=== PATIENT | male | born 1985 ===

== ENCOUNTER 2020-07-26 09:52 | Emergency (ER) | payer SELFPAY ==
--- NOTE | 2020-07-26 10:31 | ED_ITS ---
HPI - Dental/Oral General Chief complaint: Dental/Oral Stated complaint: dental pain Time Seen by Provider: 07/26/20 10:31 Source: patient Mode of arrival: ambulatory Limitations: no limitations History of Present Illness HPI Narrative: Pt states one week of dental pain, upper left side, sensitive to heat and cold, small amount of swelling in cheek, thinks it is a broken tooth, doesn't have a dentist, just got out of half-way where he did have cleanings done, denies gum or tongue swelling or fevers. Related Data Previous Rx's Medication Instructions Recorded penicillin V potassium 500 mg PO TID #30 tab 07/26/20 Allergies Allergy/AdvReac Type Severity Reaction Status Date / Time No Known Allergies Allergy Verified 07/26/20 10:39 [No Known Allergies*] Review of Systems Review of Systems: see HPI [facility] Past Medical History Medical History No known health problems Social History Social History Alcohol intake: never Smoking Status: Current every day smoker Use of substances other than those prescribed or required for medical reasons: No Advance Directives: No Advance Directives Information Provided: No Physical Exam Vital Signs: Vital Signs: Last Vital Signs Temp 98.3 F 07/26/20 10:32 Pulse 76 07/26/20 10:32 Resp 18 07/26/20 10:32 BP 118/71 07/26/20 10:32 Pulse Ox 99 07/26/20 10:32 Body Mass Index 23.1 Const: General: cooperative, healthy appearing, comfortable and no acute distress Nutritional Appearance: average body habitus Orientation/consciousness: patient oriented x3 Limitations: no limitations HENMT: Head: Yes normal to inspection General nose exam: Normal external nose present Face and sinus: Yes normal facial exam Mouth: Normal oral and palatal mucosa present Teeth and gingiva: abnormal tooth and associated gingiva (small pocket of suspected infection in left cheek near broken tooth) upper left , caries (mulitple) and poor dentition (multiple broken teeth) Throat: Yes posterior oropharynx normal, Yes tonsils normal and Yes uvula midline Eyes: General: appearance normal, both eyes and all related structures Resp: Effort & Inspection: normal respiratory effort Skin: General skin exam: no rashes or lesions noted Neuro: General: patient oriented x3 Course Course Course Narrative: Gave pt list of dentists, advised to follow up cher[facility]. Will rx pen and no opioids as pt has IV drug abuse hx. Advised pt to alternate motrin and tylenol. MDM - Dental/Oral Differential Diagnosis Differential diagnosis: Likely dental caries and fracture of tooth Medical Records Attestation: I reviewed the patient's medical records. Discharge Plan Discharge Clinical Impression: Dental caries, Dental abscess Fracture of tooth Qualifiers: Encounter type: initial encounter Fracture type: closed Qualified Code(s): S02.5XXA - Fracture of tooth (traumatic), initial encounter for closed fracture Patient Disposition: Home, Self-Care Instructions: Toothache (ED) Additional Instructions: Please be sure to follow up with a dentist, I have provided you with a list of local ones who accept [facility]. Prescriptions: New penicillin V potassium 500 mg tablet 500 mg PO TID Qty: 30 RF: 0 Stand Alone Forms: Work/School Release
[2020-07-26 10:32] VITALS: BP 118/71; PULSE 76; RESP 18; TEMP 36.8; O2SAT 99; BMI 23.1
== END 2020-07-26 11:11 | disposition home or self-care (01) ==
PROVIDERS: Emergency Provider Emergency Medicine Emergency Medical Services
DX: K04.7 Periapical abscess without sinus (principal); K08.89 Other specified disorders of teeth and supporting structures; F17.200 Nicotine dependence, unspecified, uncomplicated; Z71.6 Tobacco abuse counseling
CPT/HCPCS: 99283

== ENCOUNTER 2020-07-29 08:51 | Emergency (ER) | payer SELFPAY ==
[2020-07-29 08:56] VITALS: BP 113/66; PULSE 67; RESP 18; TEMP 36.6; O2SAT 98; BMI 22.4
--- NOTE | 2020-07-29 09:10 | ED_ITS ---
HPI - Dental/Oral General Chief complaint: Dental/Oral Stated complaint: DENTAL PAIN Time Seen by Provider: 07/29/20 09:10 Source: patient Mode of arrival: ambulatory Limitations: no limitations History of Present Illness HPI Narrative: 34 y/o male with history of dental caries who presents with left upper and lower dental pain for the last 1 week. He has had 2 broken teeth for a long time. He was seen here for the same 3 days ago and prescribed penicillin which he has been taking. He also has been taking Tylenol and Motrin intermittently without improvement in the pain. He has not followed up with a dentist because he states he does not have health insurance. Teeth map: 1. broken tooth 2. broken tooth Onset (ago): week(s) (1) Duration: constant Severity: severe Relieving factors: nothing Exacerbating factors: cold Context: history of dental caries and poor dental care Treatment prior to arrival: none Related Data Previous Rx's Medication Instructions Recorded penicillin V potassium 500 mg PO TID #30 tab 07/26/20 ibuprofen 600 mg PO Q8H PRN #20 tab 07/29/20 tramadol 50 mg PO Q6H PRN #10 tab 07/29/20 Allergies Allergy/AdvReac Type Severity Reaction Status Date / Time No Known Allergies Allergy Verified 07/29/20 09:09 [No Known Allergies*] Review of Systems Review of Systems: Constitutional: No Fever, No Chills ENT/Mouth: No sore throat, No Rhinorrhea, No Swallowing Difficulty, +dental pain Respiratory: No Cough, No Sputum Gastrointestinal: No Nausea, No Vomiting Skin: No Skin Lesions, No rash Neuro: + Headache PMFSH Past Medical History Attestation statement: The following information was validated with the patient. Medical History No known health problems Social History Social History Alcohol intake: never Smoking Status: Current every day smoker Advance Directives: No Advance Directives Information Provided: No Physical Exam Vital Signs: Vital Signs: Last Vital Signs Temp 97.8 F 07/29/20 08:56 Pulse 67 07/29/20 08:56 Resp 18 07/29/20 08:56 BP 113/66 07/29/20 08:56 Pulse Ox 98 07/29/20 08:56 Body Mass Index 22.4 Const: General: cooperative, healthy appearing, comfortable, no acute distress and well developed Orientation/consciousness: oriented to person, oriented to place, oriented to time and patient oriented x3 HENMT: Head: Yes normal to inspection Ears: hearing grossly normal bilaterally General nose exam: Normal external nose present Face and sinus: Yes normal facial exam Mouth: Normal oral and palatal mucosa present, lip normal, tongue normal and moist mucous membranes Teeth and gingiva: abnormal tooth and associated gingiva upper left tender, with associated gingival edema, enamel fractured and pulp exposed, lower left tender, with associated gingival edema, enamel fractured and dentin fractured Throat: Yes posterior oropharynx normal and Yes uvula midline Eyes: General: appearance normal, both eyes and all related structures Neck: Neck: Yes normal visual inspection and Yes no lymphadenopathy Chest: Chest palpation & inspection: normal inspection of the chest Resp: Effort & Inspection: normal respiratory effort and able to speak in comp lete sentences Skin: General skin exam: no rashes or lesions noted Neuro: General: oriented to person, oriented to place, oriented to time, patient oriented x3 and gait normal Extrem: General: Yes normal to inspection Course Course Course Narrative: 34 y/o return visit for dental pain. Compliant with PCN. No signs of abscess on exam. Topical lollicaine applied for comfort with good effect. Will give short course of tramadol for pain and list of dentist was provided. Expressed importance of dental follow up and he agrees to call today. MDM - Dental/Oral Differential Diagnosis Differential diagnosis: Likely gingival abscess, dental caries, toothache, dental abscess and fracture of tooth Critical Care Time Critical Care Time Critical Care Time: No Discharge Plan Discharge Clinical Impression: Toothache Patient Disposition: Home, Self-Care Instructions: Toothache (ED), Tooth Extraction (DC) Additional Instructions: You should continue taking the antibiotics as previously prescribed. Take the prescribed medications as needed for pain. You MUST follow up with a dentist [facility] to address your dental pain. List has been provided to you. Prescriptions: New tramadol 50 mg tablet 50 mg PO Q6H PRN (Reason: pain) Qty: 10 RF: 0 ibuprofen 600 mg tablet 600 mg PO Q8H PRN (Reason: pain) Qty: 20 RF: 0 No Action penicillin V potassium 500 mg tablet 500 mg PO TID Qty: 30 RF: 0 Discharge Date/Time: 07/29/20 09:28
== END 2020-07-29 09:28 | disposition home or self-care (01) ==
PROVIDERS: Emergency Provider Emergency Medicine Emergency Medical Services
DX: K02.9 Dental caries, unspecified (principal); F17.200 Nicotine dependence, unspecified, uncomplicated; Z71.6 Tobacco abuse counseling
CPT/HCPCS: 99283

== ENCOUNTER 2020-11-06 08:07 | Emergency (ER) | payer MEDICAID, SELFPAY ==
[2020-11-06 08:12] VITALS: BP 142/82; PULSE 75; RESP 20; TEMP 36.7; O2SAT 100; BMI 17.1
--- NOTE | 2020-11-06 12:00 | PC.NURSE ---
FAXED AND CALLED TO [facility]
[2020-11-06 12:15] LABS: Basophils Percent Auto 0.3 % (0-2); Eosinophils Percent Auto 0.3 % (0-4); Hematocrit 40.4 % (42-52); Hemoglobin 13.1 g/dl (14.0-18.0); Imm Gran Abs Auto 0.02 X10*3/uL (0.00-0.03); Imm Gran Pct Auto 0.2 % (0.0-0.4); Lymphocytes Absolute Auto 2.8 X10*3/uL (1.2-4.9); Lymphocytes Percent Auto 31.1 % (20-40); MANUAL DIFF FLAG NO; Mean Corpuscular HGB Conc 32.4 g/dl (31.0-36.0); Mean Corpuscular Hemoglobin 26.2 pg (27.0-33.0); Mean Corpuscular Volume 80.8 fL (80-98); Mean Platelet Volume 9.1 fL (9.4-12.4); Monocytes Absolute Auto 0.3 X10*3/uL (0.1-1.2); Monocytes Percent Auto 2.7 % (2-11); Neutrophils Absolute Auto 5.9 X10*3/uL (2.0-8.3); Neutrophils Percent Auto 65.4 % (45-73); Platelet Count 218 X10*3/uL (160-400); Red Cell Distribution Width 13.1 % (11.0-16.0); White Blood Count 9.1 X10*3/uL (4.8-10.8)
[2020-11-06 12:55] LABS: Influenza A PCR NEGATIVE (Negative); Influenza B PCR NEGATIVE (Negative); Resp Syncy Virus RNA Qual PCR NEGATIVE (Negative); SARS COV2 PCR INHOUSE NEGATIVE (Negative)
[2020-11-06 12:56] LABS: Ethanol < 10 mg/dL
[2020-11-06 12:58] LABS: Anion Gap 11 (12-20); Blood Urea Nitrogen 10 mg/dL (9-16); Calcium 9.1 mg/dL (8.4-10.2); Carbon Dioxide 24 mmol/L (22-29); Chloride 107 mmol/L (96-108); Creatinine Clr Calc Pharmacy 106.1; Estimated Glomerular Filt Rate > 60; Glucose Random 130 mg/dL (60-115); Sodium 138 mmol/L (135-145)
--- NOTE | 2020-11-06 13:07 | PC.NURSE ---
pt sleeping in [address] bed. reports SI with no plan, hx of SA. Stopped consuming 1 bundle QD 2 days ago. Denies ETOH. COWS 2. Sitter at bedside.
[2020-11-06 15:46] VITALS: BP 118/64; PULSE 64; RESP 16; O2SAT 99
--- NOTE | 2020-11-06 16:35 | MHC.CARE ---
CARE team contacted [facility] re: ETA for a clinician to evaluate pt. [facility] unable to provide an estimate at this time, reporting that they are backed up with community based assessments. CARE team will complete the evaluation. Pt is uninsured.
--- NOTE | 2020-11-06 17:07 | MHC.CARE ---
CARE team met with pt to complete risk assessment with the assistance of a Nepalese language asst. Pt reported that he hasn't been sleeping well and has not used in the past 2 days. Pt stated that he came to the ED because he has been feeling a heat inside that has been keeping him from sleeping and made him have thoughts of hurting himself. Pt reported that he has been using speedballs (cocaine and fentanyl) for the past 6 months. Prior to this, pt stated that he had only used marijuana. Pt denied having a hx of mental illness, depression, anxiety, etc. Pt denied hx of inpatient or outpatient treatment for mental illness. Pt denied hx of suicide attempts and endorsed hx of one previous instance of experiencing suicidal ideation while pt was in longterm, when he considered choking himself. Pt denied current SI, however stated that if he is discharged from the ED without treatment, he will want to harm himself. Pt is seeking detox and recovery resources. Pt has no hx of methadone or suboxone, and is uninsured at this time. This quality analyst/technical writer has conducted a bedsearch. No beds available at [facility], there are 3 beds available at [facility] detox in [place] after 9pm (for either 10pm, 12am, or 2am admission times), and [facility] ([facility]) has beds available indicated via [facility], though not confirmed, as they required documentation to be sent beforehand. This quality analyst/technical writer will fax over ED visit summary and labs for review to [facility], will plan to follow up with [facility] at 9pm, and will have defensive line coach meet with pt this evening.
--- NOTE | 2020-11-06 18:24 | MHC.RECOVSUP ---
? Reason for consult :Withdrawal o Current location: ED22 o Identified substance use concern: Heroin - Withdrawal - Seeking ATS (detox) - Support ? Intervention: o ATS bed search started 6pm -6:45pm o MAT to be started at the ED Waiting for Doctor in charge approval o Community resources provided o Harm reduction discussion ? Plan: o Referral to [facility] o Follow up tomorrow at the [facility] o Patient is to follow up with [facility] tomorrow as well for detox or other resource. ? Additional information:
[2020-11-06] MEDS: Buprenorphine/Naloxone 4/1 mg FILM 1 FILM SUBLINGUAL (18:38)
--- NOTE | 2020-11-06 18:54 | MHC.CARE ---
No detox beds available. Pt interested in starting suboxone. This functional tester typewriters spoke with ED provider re: initiating suboxone while in the ED with plan to follow-up with [facility] tomorrow (Saturday) morning. personal health coach supporting pt with follow-up and referral.
== END 2020-11-06 18:45 | disposition home or self-care (01) ==
PROVIDERS: Emergency Provider Emergency Medicine
DX: F11.23 Opioid dependence with withdrawal (principal); Z71.51 Drug abuse counseling and surveillance of drug abuser; Z20.822 Contact with and (suspected) exposure to COVID-19
CPT/HCPCS: 0241U; 36415; 80048; 80320; 85025; 99285

== ENCOUNTER → 2020-11-07 10:05 | Outpatient (BNVA) | payer MEDICAID, SELFPAY | PROVIDERS: Visit Provider Internal Medicine | DX: F11.99 Opioid use, unspecified with unspecified opioid-induced disorder (principal); Z79.899 Other long term (current) drug therapy | CPT/HCPCS: 80305; 99202 ==

== ENCOUNTER 2020-12-30 11:24 | Emergency (ER) | payer OTHER, SELFPAY ==
--- NOTE | ~2020-12-30 | CT_ITS ---
EXAMINATION: CT HEAD WITHOUT CONTRAST CLINICAL INFORMATION: Confusion COMPARISON: None TECHNIQUE: Contiguous axial imaging was performed from the skull base to vertex without intravenous administration of contrast. This CT examination was performed using dose optimization techniques as appropriate, variously including the following: *Automated exposure control *Adjustment of mA and/or kV according to patient size (this includes techniques or standardized protocols for targeted exams where dose is matched to indication/reason for exam; i.e. extremities or head) *Use of iterative reconstruction technique DLP: 664 mGy-cm FINDINGS: There is no evidence of acute intracranial hemorrhage or territorial infarction. No abnormal mass effect or midline shift is seen. [place] to white matter differentiation is well preserved. No extra-axial fluid collections are identified. The ventricles are normal in size. There is no abnormal attenuation within the brain parenchyma. The osseous structures and soft tissues are normal. The mastoid air cells and visualized portions of the paranasal sinuses are well aerated. CT/CT head/brain wo con IMPRESSION: No CT evidence of acute intracranial pathology.
--- NOTE | ~2020-12-30 | XR_ITS ---
EXAMINATION: XR CHEST CLINICAL INFORMATION: Dyspnea COMPARISON: None TECHNIQUE: Frontal view of the chest was obtained. FINDINGS: The cardiac and mediastinal contours are normal. The lungs are clear. There is no pleural effusion or pneumothorax. There is mild curvature of the midthoracic spine to the right. XR/XR chest 1V IMPRESSION: No evidence for acute disease in the chest.
[2020-12-30 11:30] VITALS: BP 122/89; TEMP 36.7; BMI 21.1
--- NOTE | 2020-12-30 11:49 | ECG_ITS ---
Test Reason : DYSPNEA Blood Pressure : / mmHG Vent. Rate : 082 BPM Atrial Rate : 082 BPM P-R Int : 154 ms QRS Dur : 088 ms QT Int : 390 ms P-R-T Axes : 035 028 039 degrees QTc Int : 455 ms Normal sinus rhythm Normal ECG No previous ECGs available Referred By: Tessie Rodrigues Electronically Signed By:SHYAM CUADRA MD
--- NOTE | 2020-12-30 11:55 | ED.SOB ---
HPI - SOB/Dyspnea General Chief Complaint: Dyspnea Stated Complaint: DIFF BREATHING Time Seen by Provider: 12/30/20 11:49 Source: patient Mode of arrival: other (dropped off by friends ) Limitations: other (cannot remember events) History of Present Illness HPI Narrative: 35 yo male used heroin and cocaine then cannot remember what happened - he comes in with panic, yawning and a runny nose he doesn't think he received narcan but he isn't sure he overdosed. MD elicited complaint: shortness of breath Pertinent past history: IV drug use Onset (ago): minute(s) Context: other (remembers using then woke up near ED) Timing: now resolved Exacerbating factors: other (time seems to have improved it) Relieving factors: nothing Known history of: IVDU Associated symptoms: denies other symptoms Treatment prior to arrival: none Related Data Previous Rx's Medication Instructions Recorded penicillin V potassium 500 mg PO TID #30 tab 07/26/20 ibuprofen 600 mg PO Q8H PRN #20 tab 07/29/20 tramadol 50 mg PO Q6H PRN #10 tab 07/29/20 buprenorphine 8 mg-naloxone 2 mg 2 film SUBLINGUAL DAILY 7 Days #14 11/07/20 sublingual film ea Allergies Allergy/AdvReac Type Severity Reaction Status Date / Time No Known Allergies Allergy Verified 12/30/20 11:27 [No Known Allergies*] Review of Systems Review of Systems: Constitutional : No Fever, No Chills ENT/Mouth : No sore throat, No Rhinorrhea, No Swallowing Difficulty Eyes: No Eye Pain, No Swelling, No Redness Cardiovascular : No Chest Pain, positive SOB, No Orthopnea, no Edema Respiratory : No Cough, No Sputum, No Wheezing, positive dyspnea Gastrointestinal : No Nausea, No Vomiting, No Diarrhea, No abdominal Pain, No Hematochezia, No Melena Genitourinary : No Dysuria, No Urinary Frequency, No Hematuria Musculoskeletal : No joint pain, No Myalgias Skin : No Skin Lesions, No rash Neuro : No Weakness, No Numbness, No Dizziness, No Headache Psych : pos Anxiety/Panic, No Depression Heme/Lymph: No Bruising, No Lymphadenopathy Endocrine : No Polyuria, No Polydipsia All other systems reviewed and are negative [facility] Past Medical History Attestation statement: The following information was validated with the patient. Medical History No known health problems Opioid use disorder Social History Social History Alcohol intake: never Smoking Status: Current every day smoker Substance Use Type: Crack/Cocaine and Heroin Advance Directives: No Advance Directives Information Provided: No Physical Exam Vital Signs: Vital Signs: Last Vital Signs Temp 98.0 F 12/30/20 11:30 Pulse 76 12/30/20 13:46 Resp 14 12/30/20 13:46 BP 122/71 12/30/20 13:46 Pulse Ox 97 12/30/20 13:46 Body Mass Index 21.1 Appearance: Alert. Oriented X3. No acute distress. Anxious restless Eyes: R pupil 3mm, L pupil 4mm - unsure if this is old both reactive ENT: Pharynx normal. yanwing repeatedly , clear liquid in nares Neck: Normal inspection. Neck supple. CVS: Normal heart rate and rhythm. Pulses normal. Respiratory: No respiratory distress. Breath sounds normal. Abdomen: Soft and nontender. Skin: Skin warm and dry. Normal skin color. Normal skin turgor. Piloerection Extremities: No lower extremity edema. No calf ttp Neuro: Oriented X 3. No motor deficit. No sensory deficit. Course Course Course Narrative: given pupils will obtain CT head for trauma denies vision changes, normal neuro exam GCS 15 patient calm and cooperative - stable for DC possible bed at [facility] MDM - SOB/Dyspnea MDM Narrative Medical decision making narrative: 35 yo male with IVDA here with yawning, piloerection c/o dyspnea but 100% on RA seems more anxiety, EKG and CXR ordered, I suspect he overdose and was given narcan but there is no way of knowing since the friends dropped him off. Lab Data Labs: Lab Results 12/30/20 Range/Units 14:37 COVID-19 ([facility]) Negative (Negative) COVID-19 Clin Com See Note ECG Data Attestation: I personally reviewed and interpreted this ECG as follows: ECG interpretation date: 12/30/20 ECG interpretation time: 12:21 Interpretation: Rate: 82 Rhythm: NSR [place]: normal Normal P waves. Normal FER[place]NDO. Normal QRS complex. ST T wave : normal no MAXIM qTC: normal prior studies: no acute ischemia The study has been interpreted contemporaneously by me. . Discharge Plan Discharge Clinical Impression: Opioid use disorder Patient Disposition: Home, Self-Care Instructions: Dyspnea (ED) Additional Instructions: return to ED for any worsening symptoms or concerns Prescriptions: No Action penicillin V potassium 500 mg tablet 500 mg PO TID Qty: 30 RF: 0 tramadol 50 mg tablet 50 mg PO Q6H PRN (Reason: pain) Qty: 10 RF: 0 ibuprofen 600 mg tablet 600 mg PO Q8H PRN (Reason: pain) Qty: 20 RF: 0 Narcan 4 mg/actuation spray,non-aerosol 4 mg intranasal ONCE Qty: 1 RF: 0 buprenorphine-naloxone [Suboxone] 8-2 mg film 2 film sublingual DAILY 7 Days Qty: 14 RF: 0
[2020-12-30 13:03] VITALS: PULSE 77; RESP 18; O2SAT 97
[2020-12-30 13:46] VITALS: BP 122/71; PULSE 76; RESP 14; O2SAT 97
--- NOTE | 2020-12-30 14:52 | MHC.RECOVSUP ---
Recovery Support note: Patient is a 35 year old Pakistani speaking male who presented to [facility] ED due to shortness of breath. Patient reports recent heroin use and he was possibly given naloxone prior to arrival. This marketing underwriter met with patient to discuss substance use treatment options. Patient reports he is interested in going to detox after discharge from the hospital. Patient information has been faxed to [facility] and is currently being reviewed. Discussed case with patient's ED provider. This marketing underwriter will follow up with [facility] to determine if patient can get a detox bed at that facility.
[2020-12-30 15:07] LABS: COVID-19 Test Negative (Negative); IDNOW Serial# 08D9AD1C
[2020-12-30 15:23] VITALS: BP 116/71; PULSE 71; RESP 14; O2SAT 99
--- NOTE | 2020-12-30 15:24 | PC.NURSE ---
PT IS CURRENTLY ASLEEP, BUT EASILY AROUSABLE, RESPORATIONS EVEN AND UNLABORED, PT STILL STATES THAT HE FEELS SOB BUT SATING 99% ON ROOM AIR. PLAN FOR PT TO GO TO DETOX
[2020-12-30 16:00] VITALS: BP 140/83; PULSE 64; RESP 16; TEMP 37.1; O2SAT 97
--- NOTE | 2020-12-30 16:14 | PC.NURSE ---
PT DOING A INTAKE WITH EYAL REICH FROM CARE TEAM STATES PT HAS A BED AND TRANSPORT ARRANGED.
--- NOTE | 2020-12-30 16:51 | MHC.RECOVSUP ---
Recovery Support note: Patient completed intake with [facility] and was transported to the facility via [employer]. COVID test result has been faxed.
== END 2020-12-30 16:26 | disposition home or self-care (01) ==
PROVIDERS: Emergency Provider Emergency Medicine
DX: F11.10 Opioid abuse, uncomplicated (principal); F17.200 Nicotine dependence, unspecified, uncomplicated
CPT/HCPCS: 36415; 70450; 71045; 87635; 93005; 99284

== ENCOUNTER 2023-04-05 15:10 | Emergency (ER) | payer OTHER, SELFPAY ==
--- NOTE | ~2023-04-05 | XR_ITS ---
EXAMINATION: XR KNEE, LEFT CLINICAL INFORMATION: Trauma. COMPARISON: None available. TECHNIQUE: Four views of the left knee. FINDINGS: No evidence of acute fractures or subluxation. Joint spaces are maintained. No erosions or chondrocalcinosis. Soft tissue thickening along the anterior compartment of the knee with a small joint effusion. XR/XR knee LT 4V IMPRESSION: 1. No acute fractures or subluxation. 2. Soft tissue thickening along the anterior compartment of the knee with a small joint effusion.
[2023-04-05 15:14] VITALS: BP 113/78; PULSE 99; RESP 18; TEMP 36.9; O2SAT 98; BMI 21.1
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
[2023-04-05 16:22] LABS: MANUAL DIFF FLAG NO
[2023-04-05 16:26] LABS: Basophils Percent Auto 0.2 % (0-2); Eosinophils Absolute Auto 0.1 X10*3/uL (0.0-0.4); Eosinophils Percent Auto 0.7 % (0-4); Hematocrit 34.5 % (42.0-52.0); Hemoglobin 11.2 g/dl (14.0-18.0); Imm Gran Abs Auto 0.02 X10*3/uL (0.00-0.03); Imm Gran Pct Auto 0.2 % (0.0-0.4); Lymphocytes Absolute Auto 2.9 X10*3/uL (1.2-4.9); Lymphocytes Percent Auto 33.9 % (20-40); Mean Corpuscular HGB Conc 32.5 g/dl (31.0-36.0); Mean Corpuscular Hemoglobin 27.9 pg (27.0-33.0); Mean Corpuscular Volume 85.8 fL (80.0-98.0); Mean Platelet Volume 8.3 fL (9.4-12.4); Monocytes Absolute Auto 0.6 X10*3/uL (0.1-1.2); Neutrophils Absolute Auto 4.9 x10*3/uL (2.0-8.3); Platelet Count 157 X10*3/uL (160-400); Red Blood Count 4.02 X10*6/uL (4.60-5.80); Red Cell Distribution Width 12.4 % (11.0-16.0); White Blood Count 8.4 X10*3/uL (4.8-10.8)
[2023-04-05 16:36] LABS: Lactic Acid 1.4 mmol/L (0.5-2.0)
[2023-04-05 16:41] LABS: Alanine Aminotransferase 61 U/L (0-40); Albumin Level 3.3 g/dL (3.5-5.0); Alkaline Phosphatase 80 U/L (39-117); Anion Gap 12 (12-20); Aspartate Amino Transferase 46 U/L (5-37); Bilirubin Direct 0.3 mg/dL (0.0-0.5); Bilirubin Total 0.7 mg/dL (0.0-1.0); Blood Urea Nitrogen 13 mg/dL (9-16); C Reactive Protein 4.33 mg/dL (< or = 0.50); Calcium 8.8 mg/dL (8.4-10.2); Carbon Dioxide 27 mmol/L (22-29); Chloride 101 mmol/L (96-108); Creatinine Clr Calc Pharmacy 135.2; Estimated Glomerular Filt Rate > 60; Glucose Random 107 mg/dL (60-115); Potassium 4.2 mmol/L (3.3-5.1); Sodium 136 mmol/L (135-145); Total Protein 7.3 g/dL (6.5-8.0)
[2023-04-05] MEDS: Ketorolac Tromethamine 30 MG/ML VIAL IVPUSH (17:02)
[2023-04-05] MEDS: Piperacillin Sodium/Tazobactam 3.375 GM in 0.9 % Sodium Chloride 50 ML IV (17:23)
[2023-04-05 17:38] LABS: Erythrocyte Sedimentation Rate 23 MM/HR (0-15)
[2023-04-05] MEDS: vancomycin HCL 1,000 MG, vancomycin HCL 750 MG in 0.9 % Sodium Chloride 500 ML 267.5 MG IV (17:45)
[2023-04-05 17:50] LABS: Prothrombin Time 12.6 SEC (11.1-13.3)
[2023-04-05 19:58] VITALS: BP 100/56; PULSE 74; RESP 12; TEMP 36.7; O2SAT 99
--- NOTE | 2023-04-05 20:15 | PC.NURSE ---
Pt aox4 resting at the bedside. Jarett wrap noted to the left knee. Pt tolerating well. Ab tx completed. IV line removed with no complications. Pt tolerated well. Discharge instructions reviewed with pt. Pt verbalizes understanding. Ambulatory with steady gait at discharge.
== END 2023-04-05 20:16 | disposition home or self-care (01) ==
PROVIDERS: Nurse Practitioner Family; Emergency Provider Emergency Medicine
DX: L03.116 Cellulitis of left lower limb (principal); M25.562 Pain in left knee
CPT/HCPCS: 36415; 73564; 80048; 80076; 83605; 85025; 85610; 85652; 86140; 87040; 96365; 96366; 96367; 96375; 99284; J1885; J2543; J3370

== ENCOUNTER 2023-04-06 11:29 | Emergency (ER) | payer OTHER, SELFPAY ==
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
[2023-04-06 11:41] VITALS: BP 149/83; PULSE 116; RESP 18; TEMP 36.8; O2SAT 98; BMI 21.0
[2023-04-06 12:04] LABS: MANUAL DIFF FLAG NO
[2023-04-06 12:06] LABS: Basophils Percent Auto 0.1 % (0-2); Eosinophils Percent Auto 0.2 % (0-4); Hematocrit 35.5 % (42.0-52.0); Hemoglobin 11.4 g/dl (14.0-18.0); Imm Gran Abs Auto 0.03 X10*3/uL (0.00-0.03); Imm Gran Pct Auto 0.4 % (0.0-0.4); Lymphocytes Percent Auto 24.2 % (20-40); Mean Corpuscular HGB Conc 32.1 g/dl (31.0-36.0); Mean Corpuscular Hemoglobin 27.9 pg (27.0-33.0); Mean Platelet Volume 8.6 fL (9.4-12.4); Monocytes Absolute Auto 0.5 X10*3/uL (0.1-1.2); Monocytes Percent Auto 5.8 % (2-11); Neutrophils Absolute Auto 5.8 x10*3/uL (2.0-8.3); Neutrophils Percent Auto 69.3 % (45-73); Platelet Count 157 X10*3/uL (160-400); Red Blood Count 4.08 X10*6/uL (4.60-5.80); Red Cell Distribution Width 12.4 % (11.0-16.0); White Blood Count 8.3 X10*3/uL (4.8-10.8)
[2023-04-06 12:15] LABS: Lactic Acid 1.5 mmol/L (0.5-2.0)
[2023-04-06 12:19] LABS: Anion Gap 11 (12-20); Blood Urea Nitrogen 14 mg/dL (9-16); C Reactive Protein 6.92 mg/dL (< or = 0.50); Calcium 8.6 mg/dL (8.4-10.2); Carbon Dioxide 25 mmol/L (22-29); Chloride 105 mmol/L (96-108); Creatinine Clr Calc Pharmacy 120.1; Estimated Glomerular Filt Rate > 60; Glucose Random 85 mg/dL (60-115); Potassium 3.9 mmol/L (3.3-5.1); Sodium 137 mmol/L (135-145)
--- NOTE | 2023-04-06 13:08 | PC.NURSE ---
MIKE EDMOND REPORTS ASSESSED PT IN [place] RM APPROX. 1230, MIKE RETURNED TO [place] ROOM APPROX. 1255 PT WAS NO LONGER IN ROOM, THIS RN HAD NO CONTACT WITH PT. BATHROOMS IN [facility] AREA AND MAIN WR WERE CHECKED PT NOT FOUND TO BE IN DEPT
[2023-04-06 13:11] LABS: Erythrocyte Sedimentation Rate 28 MM/HR (0-15)
== END 2023-04-06 12:55 | disposition left against medical advice (07) ==
PROVIDERS: Nurse Practitioner Family; Emergency Provider Emergency Medicine
DX: L03.116 Cellulitis of left lower limb (principal); M25.562 Pain in left knee; R00.0 Tachycardia, unspecified; F11.20 Opioid dependence, uncomplicated
CPT/HCPCS: 36415; 80048; 83605; 85025; 85652; 86140; 99283

== ENCOUNTER 2023-05-20 23:57 | Emergency (ER) | payer OTHER, SELFPAY ==
[2023-05-21 00:08] VITALS: BP 132/80; PULSE 130; RESP 16; TEMP 36.7; O2SAT 98; BMI 18.5
--- NOTE | 2023-05-21 01:31 | PC.NURSE ---
Not in WR when called @ 0120. This RN calling pts numbers listed in chart, unable to reach patient.
== END 2023-05-21 01:44 | disposition left against medical advice (07) ==
PROVIDERS: Emergency Provider Emergency Medicine
DX: R60.0 Localized edema (principal)
CPT/HCPCS: 99281

== ENCOUNTER 2023-05-22 23:37 | Emergency (ER) | payer OTHER, SELFPAY ==
--- NOTE | ~2023-05-22 | XR_ITS ---
EXAMINATION: XR KNEE, LEFT CLINICAL INFORMATION: Pain COMPARISON: 04/05/2023 TECHNIQUE: Four views of the left knee. FINDINGS: No fracture or joint effusion. Alignment is anatomic. Joint spaces are maintained. No abnormal soft tissue calcification. There is prepatellar soft tissue swelling. XR/XR knee LT 4V IMPRESSION: No acute osseous abnormality. Prepatellar soft tissue swelling.
[2023-05-22 23:42] VITALS: BP 128/74; PULSE 100; RESP 18; TEMP 36.8; O2SAT 100; BMI 18.5
[2023-05-23 00:42] LABS: Basophils Absolute Auto 0.1 X10*3/uL (0.0-0.2); Basophils Percent Auto 0.6 % (0-2); Eosinophils Absolute Auto 0.1 X10*3/uL (0.0-0.4); Eosinophils Percent Auto 1.3 % (0-4); Hematocrit 32.9 % (42.0-52.0); Hemoglobin 10.7 g/dl (14.0-18.0); Imm Gran Abs Auto 0.01 X10*3/uL (0.00-0.03); Imm Gran Pct Auto 0.1 % (0.0-0.4); Lymphocytes Absolute Auto 3.9 X10*3/uL (1.2-4.9); Lymphocytes Percent Auto 45.6 % (20-40); MANUAL DIFF FLAG NO; Mean Corpuscular HGB Conc 32.5 g/dl (31.0-36.0); Mean Corpuscular Hemoglobin 26.9 pg (27.0-33.0); Mean Corpuscular Volume 82.7 fL (80.0-98.0); Mean Platelet Volume 8.4 fL (9.4-12.4); Monocytes Absolute Auto 0.7 X10*3/uL (0.1-1.2); Monocytes Percent Auto 8.2 % (2-11); Neutrophils Absolute Auto 3.8 x10*3/uL (2.0-8.3); Neutrophils Percent Auto 44.2 % (45-73); Platelet Count 211 X10*3/uL (160-400); Red Blood Count 3.98 X10*6/uL (4.60-5.80); Red Cell Distribution Width 12.6 % (11.0-16.0); White Blood Count 8.6 X10*3/uL (4.8-10.8)
[2023-05-23 00:55] LABS: Alanine Aminotransferase 50 U/L (0-40); Albumin Level 3.5 g/dL (3.5-5.0); Alkaline Phosphatase 77 U/L (39-117); Anion Gap 13 (12-20); Aspartate Amino Transferase 58 U/L (5-37); Bilirubin Total 0.6 mg/dL (0.0-1.0); Blood Urea Nitrogen 16 mg/dL (9-16); Calcium 9.2 mg/dL (8.4-10.2); Carbon Dioxide 24 mmol/L (22-29); Chloride 101 mmol/L (96-108); Creatinine Clr Calc Pharmacy 105.8; Estimated Glomerular Filt Rate > 60; Glucose Random 104 mg/dL (60-115); Potassium 3.9 mmol/L (3.3-5.1); Sodium 134 mmol/L (135-145)
[2023-05-23 03:30] VITALS: BP 104/54; PULSE 88; RESP 16; TEMP 37.2; O2SAT 100
--- NOTE | 2023-05-23 05:24 | PC.NURSE ---
Pt upset where is the fucking doctor, I've been here since 10pm, where is the exit . Pt ambulated independently with steady gait out of the treatment area.
== END 2023-05-23 05:31 | disposition left against medical advice (07) ==
PROVIDERS: Emergency Provider Emergency Medicine
DX: M25.562 Pain in left knee (principal); M54.50 Low back pain, unspecified
CPT/HCPCS: 36415; 73564; 80053; 85025; 99283; 99284

== ENCOUNTER 2023-05-28 02:26 | Emergency (ER) | payer OTHER, SELFPAY ==
--- NOTE | ~2023-05-28 | CT_ITS ---
EXAMINATION: CT LEFT KNEE WITH CONTRAST CLINICAL INFORMATION: Pain, swelling, possible foreign body COMPARISON: Radiographs 05/23/2023 TECHNIQUE: Multidetector volumetric images were obtained through the left knee following administration of 85 mL of Omnipaque 350 intravenous contrast. Sagittal and coronal reformatted images were obtained on the technologist's workstation. Oral contrast: No This CT examination was performed using dose optimization techniques as appropriate, variously including the following: *Automated exposure control *Adjustment of mA and/or kV according to patient size (this includes techniques or standardized protocols for targeted exams where dose is matched to indication/reason for exam; i.e. extremities or head) *Use of iterative reconstruction technique DLP: 189 mGy-cm FINDINGS: There is an irregularly shaped, peripherally enhancing fluid collection involving the joint space, most prominently in the suprapatellar region, with extension into the prepatellar tissues medially. This collection is difficult to measure given its irregular configuration and is estimated to extend for at least 10 cm in total craniocaudal dimension, 8.3 cm in transverse dimension, and approximately 5 cm in total AP dimension. A thin component also appears to extend both the medial and lateral compartments. Surrounding subcutaneous edema is present. No radiopaque foreign body is seen. Osseous alignment across the knee is anatomic. Joint spaces are maintained. No acute fracture is seen. CT/CT knee LT w IV con IMPRESSION: Irregularly shaped, peripherally enhancing fluid collection involving the joint space with extension into the prepatellar region medially. Findings are suspicious for abscess formation in the setting of septic arthritis. No radiopaque foreign body is seen.
[2023-05-28 02:31] VITALS: BP 127/71; PULSE 98; RESP 16; TEMP 36.9; O2SAT 98; BMI 18.5
[2023-05-28] MEDS: 0.9 % Sodium Chloride 1,000 ML 999 ML IVCONT (03:42)
[2023-05-28] MEDS: Piperacillin Sodium/Tazobactam 3.375 GM in 0.9 % Sodium Chloride 50 ML IV (03:43)
[2023-05-28 03:47] LABS: Basophils Percent Auto 0.6 % (0-2); Eosinophils Absolute Auto 0.1 X10*3/uL (0.0-0.4); Eosinophils Percent Auto 2.6 % (0-4); Hematocrit 33.5 % (42.0-52.0); Hemoglobin 10.7 g/dl (14.0-18.0); Imm Gran Abs Auto 0.01 X10*3/uL (0.00-0.03); Imm Gran Pct Auto 0.2 % (0.0-0.4); Lymphocytes Absolute Auto 2.7 X10*3/uL (1.2-4.9); MANUAL DIFF FLAG NO; Mean Corpuscular HGB Conc 31.9 g/dl (31.0-36.0); Mean Corpuscular Volume 84.6 fL (80.0-98.0); Mean Platelet Volume 8.4 fL (9.4-12.4); Monocytes Absolute Auto 0.3 X10*3/uL (0.1-1.2); Monocytes Percent Auto 6.1 % (2-11); Neutrophils Absolute Auto 2.3 x10*3/uL (2.0-8.3); Neutrophils Percent Auto 41.5 % (45-73); Platelet Count 216 X10*3/uL (160-400); Red Blood Count 3.96 X10*6/uL (4.60-5.80); Red Cell Distribution Width 12.6 % (11.0-16.0); White Blood Count 5.4 X10*3/uL (4.8-10.8)
[2023-05-28] MEDS: iohexoL 350 MG/ML 100 ML INFUS..BTL 85 ML IV (03:56)
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
[2023-05-28 04:00] VITALS: BP 131/75; PULSE 77; RESP 16; TEMP 36.9; O2SAT 98
[2023-05-28 04:13] LABS: Lactic Acid 0.8 mmol/L (0.5-2.0)
[2023-05-28 04:18] LABS: Alanine Aminotransferase 60 U/L (0-40); Albumin Level 3.4 g/dL (3.5-5.0); Alkaline Phosphatase 128 U/L (39-117); Anion Gap 11 (12-20); Aspartate Amino Transferase 62 U/L (5-37); Bilirubin Direct 0.1 mg/dL (0.0-0.5); Bilirubin Total 0.3 mg/dL (0.0-1.0); Blood Urea Nitrogen 10 mg/dL (9-16); Calcium 9.3 mg/dL (8.4-10.2); Carbon Dioxide 30 mmol/L (22-29); Chloride 103 mmol/L (96-108); Creatinine Clr Calc Pharmacy 116.8; Estimated Glomerular Filt Rate > 60; Glucose Random 80 mg/dL (60-115); Magnesium 1.9 mg/dL (1.6-2.6); Sodium 140 mmol/L (135-145); Total Protein 8.2 g/dL (6.5-8.0)
[2023-05-28] MEDS: vancomycin HCL 1,500 MG in 0.9 % Sodium Chloride 500 ML 333.33 MG IV (05:04)
[2023-05-28 05:59] VITALS: BP 112/81; PULSE 67; RESP 16; TEMP 36.8; O2SAT 96
[2023-05-28 06:36] LABS: Amphetamine Screen Urine Not Detected (Not Detect); Barbiturates, Urine Not Detected (Not Detect); Benzodiazepines Screen Urine Not Detected (Not Detect); Cannabinoid Screen Urine Not Detected (Not Detect); Cocaine Screen Urine POSITIVE (Not Detect); Fentanyl, urine POSITIVE (Not Detect); Opiate Screen Urine POSITIVE (Not Detect); Phencyclidine Screen Urine Not Detected (Not Detect)
[2023-05-28 06:50] LABS: Source Synovial Fluid left knee
[2023-05-28 07:05] LABS: MN% 9.4 %; PMN% 90.6 %
[2023-05-28 07:38] LABS: Lymphocytes Synovial Fluid 6 %; Monocytes Synovial Fluid 2 %; Neutrophils Synovial Fluid 89 %
[2023-05-28 07:39] LABS: BF Shift QC OK YES; Other Cells Synovial Fluid 3
[2023-05-28 07:40] LABS: Man Diluent Bkgrd OK YES
[2023-05-28 07:41] VITALS: BP 116/75; PULSE 72; RESP 16; TEMP 36.6; O2SAT 100
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
--- NOTE | 2023-05-28 08:30 | PC.NURSE ---
BARB WRAP TO L KNEE PER DR. CHATMAN.
== END 2023-05-28 08:44 | disposition home or self-care (01) ==
PROVIDERS: Emergency Provider Emergency Medicine
DX: M25.562 Pain in left knee (principal); M25.462 Effusion, left knee; F14.90 Cocaine use, unspecified, uncomplicated; F11.90 Opioid use, unspecified, uncomplicated; Z79.899 Other long term (current) drug therapy; F17.200 Nicotine dependence, unspecified, uncomplicated; Z71.6 Tobacco abuse counseling
CPT/HCPCS: 20610; 36415; 73701; 80048; 80076; 80307; 83605; 83735; 85025; 87040; 87070; 87073; 87076; 87186; 87205; 89051; 89060; 96361; 96365; 96366; 96375; 99284; J2543; J3371; Q9967

== ENCOUNTER 2024-02-09 01:28 | Inpatient (IN) | payer OTHER, SELFPAY ==
--- NOTE | ~2024-02-09 | US_ITS ---
EXAMINATION: US VENOUS ULTRASOUND WITH DOPPLER LOWER EXTREMITY, RIGHT CLINICAL INFORMATION: Swelling, erythema, rule out DVT COMPARISON: None available. TECHNIQUE: Ultrasound of the deep veins is performed from the hip to the calf with compression sonography and color and pulse Doppler assessment. Spectral analysis with color-flow imaging is performed. FINDINGS: The popliteal vein is noncompressible and does not demonstrate internal flow with Doppler imaging, consistent with deep venous thrombosis. Thrombus is also noted within one of the peroneal veins in the calf. There is normal venous compression and respiratory variation and augmented flow within the visualized common femoral vein and superficial femoral vein. Posterior tibial vein appears patent. There is no significant popliteal fossa cyst. US/US venous duplex LE RT IMPRESSION: Deep venous thrombosis within the right popliteal vein and one of the peroneal veins in the calf. This critical result was discussed with Dr. He on 02/09/2024 5:36 AM, and it was ascertained that the content and urgency of the report was understood at the time of direct communication.
--- NOTE | ~2024-02-09 | XR_ITS ---
EXAMINATION: XR ANKLE, RIGHT CLINICAL INFORMATION: Redness, swelling COMPARISON: None available. TECHNIQUE: AP, lateral, and mortise views of the right ankle. FINDINGS: Osseous alignment is anatomic. No acute fracture is seen. There is prominent soft tissue swelling about the ankle. XR/XR ankle RT min 3V IMPRESSION: Prominent soft tissue swelling. No acute osseous findings.
[2024-02-09 01:37] VITALS: BP 110/70; PULSE 118; O2SAT 99
[2024-02-09 01:40] VITALS: BP 101/54; PULSE 92; RESP 16; TEMP 37.1; O2SAT 98
[2024-02-09 01:44] VITALS: BMI 18.5
[2024-02-09 01:58] LABS: Basophils Percent Auto 0.5 % (0-2); Eosinophils Absolute Auto 0.1 X10*3/uL (0.0-0.4); Eosinophils Percent Auto 1.7 % (0-4); Hematocrit 30.9 % (42.0-52.0); Hemoglobin 10.4 g/dl (14.0-18.0); Imm Gran Abs Auto 0.02 X10*3/uL (0.00-0.03); Imm Gran Pct Auto 0.3 % (0.0-0.4); Lymphocytes Absolute Auto 2.7 X10*3/uL (1.2-4.9); Lymphocytes Percent Auto 41.4 % (20-40); MANUAL DIFF FLAG NO; Mean Corpuscular HGB Conc 33.7 g/dl (31.0-36.0); Mean Corpuscular Hemoglobin 26.9 pg (27.0-33.0); Mean Corpuscular Volume 80.1 fL (80.0-98.0); Mean Platelet Volume 8.9 fL (9.4-12.4); Monocytes Absolute Auto 0.4 X10*3/uL (0.1-1.2); Monocytes Percent Auto 5.7 % (2-11); Neutrophils Absolute Auto 3.3 x10*3/uL (2.0-8.3); Neutrophils Percent Auto 50.4 % (45-73); Platelet Count 163 X10*3/uL (160-400); Red Blood Count 3.86 X10*6/uL (4.60-5.80); Red Cell Distribution Width 13.3 % (11.0-16.0); White Blood Count 6.5 X10*3/uL (4.8-10.8)
[2024-02-09 02:10] LABS: Lactic Acid 1.6 mmol/L (0.5-2.0)
[2024-02-09 02:13] LABS: Alanine Aminotransferase 58 U/L (0-40); Albumin Level 3.8 g/dL (3.5-5.0); Alkaline Phosphatase 79 U/L (39-117); Anion Gap 11 (12-20); Aspartate Amino Transferase 78 U/L (5-37); Bilirubin Total 0.6 mg/dL (0.0-1.0); Blood Urea Nitrogen 11 mg/dL (9-16); C Reactive Protein 3.69 mg/dL (< or = 0.50); Calcium 9.2 mg/dL (8.4-10.2); Carbon Dioxide 26 mmol/L (22-29); Chloride 104 mmol/L (96-108); Creatinine Clr Calc Pharmacy 118.7; Estimated Glomerular Filt Rate > 60; Glucose Random 127 mg/dL (60-115); Lipase 12 U/L (8-78); Potassium 3.3 mmol/L (3.3-5.1); Sodium 138 mmol/L (135-145); Total Protein 7.6 g/dL (6.5-8.0)
[2024-02-09 02:31] LABS: Erythrocyte Sedimentation Rate 20 MM/HR (0-15)
[2024-02-09 04:06] VITALS: TEMP 37
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
[2024-02-09] MEDS: Ketorolac Tromethamine 15 MG/ML VIAL IVPUSH (04:22)
[2024-02-09] MEDS: Piperacillin Sodium/Tazobactam 4.5 GM in 0.9 % Sodium Chloride 100 ML IV (04:22)
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
[2024-02-09] MEDS: vancomycin HCL 1,500 MG in 0.9 % Sodium Chloride 500 ML 333.33 MG IV (05:07)
[2024-02-09] MEDS: Enoxaparin Sodium 40 MG/0.4 ML SYRINGE SUBCUT (05:08)
[2024-02-09 05:09] VITALS: BP 100/50; PULSE 73; RESP 17; TEMP 37.1; O2SAT 98
[2024-02-09 05:17] LABS: Appearance Urine Clear; Color Urine Yellow; Glucose Urine UA Negative (Negative); Leukocyte Esterase Urine Negative (Negative); Nitrite Urine Negative (Negative); Urine Blood Negative (Negative); Urine Ketones Negative (Negative); Urine Protein Negative (Neg-Trace)
[2024-02-09 05:26] LABS: Amphetamine Screen Urine Not Detected (Not Detect); Barbiturates, Urine Not Detected (Not Detect); Benzodiazepines Screen Urine Not Detected (Not Detect); Buprenorphine Scr Not Detected (Not Detect); Cannabinoid Screen Urine POSITIVE (Not Detect); Cocaine Screen Urine POSITIVE (Not Detect); Fentanyl, urine POSITIVE (Not Detect); Methadone Screen, Urine Positive (Not Detect); Opiate Screen Urine POSITIVE (Not Detect); Oxycodone Screen Urine Not Detected (Not Detect); Phencyclidine Screen Urine Not Detected (Not Detect)
[2024-02-09] MEDS: Enoxaparin Sodium 30 MG/0.3 ML SYRINGE 20 MG SUBCUT (05:30)
--- NOTE | 2024-02-09 05:35 | PC.NURSE ---
pt being admitted to hospital for +DVT and cellulitis of RLE. #20g iv placed in right forearm, blood cultures/lactic/labs sent, iv abx zosyn and vanco administered. Pt being treated w/ 60mg subq lovenox for tx of DVT. Pt is resting comfortably on stretcher, medicated with toradol iv for pain. no current complaints. no apparent distress, call zhang within reach. requesting food. plan of care ongoing.
[2024-02-09 05:44] LABS: MANUAL DIFF FLAG NO
[2024-02-09 05:49] LABS: Basophils Percent Auto 0.5 % (0-2); Eosinophils Absolute Auto 0.1 X10*3/uL (0.0-0.4); Hematocrit 29.1 % (42.0-52.0); Hemoglobin 9.7 g/dl (14.0-18.0); Imm Gran Abs Auto 0.02 X10*3/uL (0.00-0.03); Imm Gran Pct Auto 0.3 % (0.0-0.4); Lymphocytes Absolute Auto 2.9 X10*3/uL (1.2-4.9); Mean Corpuscular HGB Conc 33.3 g/dl (31.0-36.0); Mean Corpuscular Volume 81.1 fL (80.0-98.0); Mean Platelet Volume 9.1 fL (9.4-12.4); Monocytes Absolute Auto 0.4 X10*3/uL (0.1-1.2); Monocytes Percent Auto 6.7 % (2-11); Neutrophils Absolute Auto 2.6 x10*3/uL (2.0-8.3); Neutrophils Percent Auto 42.5 % (45-73); Platelet Count 154 X10*3/uL (160-400); Red Blood Count 3.59 X10*6/uL (4.60-5.80); Red Cell Distribution Width 13.3 % (11.0-16.0); White Blood Count 6.1 X10*3/uL (4.8-10.8)
[2024-02-09 06:01] LABS: Anion Gap 9 (12-20); Blood Urea Nitrogen 9 mg/dL (9-16); Calcium 8.9 mg/dL (8.4-10.2); Carbon Dioxide 26 mmol/L (22-29); Chloride 106 mmol/L (96-108); Estimated Glomerular Filt Rate > 60; Glucose Random 94 mg/dL (60-115); Potassium 3.3 mmol/L (3.3-5.1); Sodium 138 mmol/L (135-145)
[2024-02-09] MEDS: 0.9 % Sodium Chloride Flush 3 ML SYRINGE IVFLUSH ×2 (08:25→15:02)
[2024-02-09] MEDS: Piperacillin Sodium/Tazobactam 3.375 GM in 0.9 % Sodium Chloride 50 ML IV ×3 (08:26→21:21)
--- NOTE | 2024-02-09 08:35 | PHA.MEDREC ---
Pharmacy Consult ? Medication Reconciliation Pharmacy has completed the medication reconciliation.
--- NOTE | 2024-02-09 09:32 | PM.EVENT ---
Event Note Date of Service: 02/09/24 Event Note: Day hospitalist update S: c/o R foot redness/swelling, R calf swelling; no fever O: Temp Pulse Resp BP Pulse Ox O2 Del Method 98.7 F 73 17 100/50 L 98 Room Air 02/09/24 05:02/09/24 05:02/09/24 05:02/09/24 05:02/09/24 05:02/09/24 05:09 Gen: in no acute distress HEENT: sclera anicteric, moist mucus membranes Neck: supple Lungs: clear to auscultation bilaterally Heart: regular rate and rhythm, no murmurs Abd: soft, non-tender, non-distended Ext: no edema, RLE swollen below knee Skin: warm/well-perfused, redness of dorsum of R foot and hernández with no purulence noted Neuro: alert and oriented x3, no focal findings Psych: appropriate affect A/P: d1 38yo M with injection polysubstance abuse presenting with acute pain/swelling of RLE, found to have cellulitis and acute DVT acute DVT - likely due to venous injury from IDU; change LMWH to apixaban RLE cellulitis - vanco + pip/dariusz 02/08-, follow BCx normocytic anemia - likely anemia of chronic disease but will check iron panel, B12/FA, LDH/RI, FOBT polysubstance abuse disorder - screen HBV/HCV/HIV, Addiction Medicine consult VTE ppx - on apixaban dispo - eventual home In my clinical judgment, the patient requires continued inpatient hospitalization for the following reasons: IV ABX Time Spent With Patient Time: Total time managing care of this patient today ____ minutes.
[2024-02-09 10:08] LABS: Retic HGB Equivalent 30.5 pg (30.0-35.0); Reticulocytes Absolute 0.037 X10*6/uL (0.026-0.095)
[2024-02-09 10:22] LABS: Iron 19 mcg/dL (45-160); Lactate Dehydrogenase 202 U/L (118-273); Percent Iron Saturation 8 % (15-50); Total Iron Binding Capacity 236 mcg/dL (228-428); Unsaturated Iron Binding 217 ug/dL
[2024-02-09 10:36] LABS: Ferritin 151 ng/mL (20-250)
--- NOTE | 2024-02-09 13:32 | PHA.PROG ---
Admission Date/Time: February 09, 2024 04:28 Indication: SKIN Weight in k.503 kg Adjusted body weight in Kg: [place] body weight in Kg: Obesity Dosing Indication % IBW: Serum Creatinine - Last 168 Hours 02/09/24 02/09/24 01:50 05:07 Creatinine 0.75 0.73 Estimated CrCl and GFR - Last 168 Hours 02/09/24 02/09/24 01:50 05:07 Estim Creat Clear Calc 118.7 122.0 Estimated GFR > 60 > 60 Vancomycin Loading Dose: 1500 Current Vancomycin Dosing Regimen: 1250 Q12 Vancomycin Monitoring using AUC goal of 400 - 600 range with trough as surrogate marker:545 Date and Time for next Vancomycin Level to be drawn: 02/09 @1300 Pharmacist Comments on Vancomycin Plan: Vancomycin dosing will take advantage of [employer] as a clinical decision support tool that uses Bayesian modeling to calculate individual patient's pharmacokinetic parameters and forecast the patient's drug concentration time course with the target goal AUC 24 range of 400 - 600 mg/L/hr.
[2024-02-09 15:00] VITALS: BP 122/68; PULSE 95; RESP 16; O2SAT 100
[2024-02-09] MEDS: Ketorolac Tromethamine 30 MG/ML VIAL IVPUSH ×2 (15:38→21:26)
[2024-02-09] MEDS: vancomycin HCL 1,250 MG in 0.9 % Sodium Chloride 250 ML 166.67 MG IV (17:29)
[2024-02-09 21:19] VITALS: BP 118/62; PULSE 69; RESP 18; TEMP 36.5; O2SAT 98
[2024-02-09] MEDS: Apixaban 5 MG TABLET 10 MG PO (21:22)
--- NOTE | 2024-02-09 21:30 | PC.NURSE ---
pt reports leg pain; requested prn toradol as felt relief with last admin. pt resting comfortably. +pedal pulses ble. abx infusing. call zhang within reach.
[2024-02-10] MEDS: 0.9 % Sodium Chloride Flush 3 ML SYRINGE IVFLUSH ×3 (01:26→20:02)
[2024-02-10] MEDS: Piperacillin Sodium/Tazobactam 3.375 GM in 0.9 % Sodium Chloride 50 ML IV ×4 (01:26→19:38)
[2024-02-10 04:57] LABS: Hematocrit 30.4 % (42.0-52.0); Hemoglobin 10.2 g/dl (14.0-18.0); Mean Corpuscular HGB Conc 33.6 g/dl (31.0-36.0); Mean Corpuscular Hemoglobin 27.1 pg (27.0-33.0); Mean Corpuscular Volume 80.6 fL (80.0-98.0); Mean Platelet Volume 9.2 fL (9.4-12.4); Platelet Count 166 X10*3/uL (160-400); Red Blood Count 3.77 X10*6/uL (4.60-5.80); Red Cell Distribution Width 13.2 % (11.0-16.0); White Blood Count 4.6 X10*3/uL (4.8-10.8)
[2024-02-10 05:18] LABS: Alanine Aminotransferase 48 U/L (0-40); Albumin Level 3.2 g/dL (3.5-5.0); Alkaline Phosphatase 71 U/L (39-117); Anion Gap 9 (12-20); Aspartate Amino Transferase 65 U/L (5-37); Bilirubin Total 0.4 mg/dL (0.0-1.0); Blood Urea Nitrogen 11 mg/dL (9-16); Calcium 9.1 mg/dL (8.4-10.2); Carbon Dioxide 25 mmol/L (22-29); Chloride 110 mmol/L (96-108); Creatinine Clr Calc Pharmacy 115.6; Estimated Glomerular Filt Rate > 60; Glucose Random 103 mg/dL (60-115); Potassium 4.1 mmol/L (3.3-5.1); Sodium 140 mmol/L (135-145); Total Protein 6.6 g/dL (6.5-8.0)
[2024-02-10 05:53] LABS: Folate 11.2 ng/mL (> or = 4.0); Vitamin B12 414 pg/mL (200-900)
[2024-02-10] MEDS: vancomycin HCL 1,250 MG in 0.9 % Sodium Chloride 250 ML 166.67 MG IV ×2 (06:13→17:45)
[2024-02-10] MEDS: Ketorolac Tromethamine 30 MG/ML VIAL IVPUSH ×2 (06:17→15:23)
[2024-02-10 07:30] VITALS: BP 144/70; PULSE 61; RESP 14; TEMP 36.8; O2SAT 100
[2024-02-10 08:00] VITALS: BP 136/74; PULSE 81; RESP 18; TEMP 36.8; O2SAT 98
[2024-02-10] MEDS: Apixaban 5 MG TABLET 10 MG PO ×2 (08:05→20:01)
[2024-02-10 08:19] LABS: C Reactive Protein 2.16 mg/dL (< or = 0.50)
[2024-02-10 08:42] LABS: HBS Num1 > 1000.00 mIU/mL (0-7.99); HBc Num1 0.37 S/CO (0.00-0.79); HBsAGNum1 0.31 S/CO (0.00-0.99); HIV AB/AG Nonreactive (Nonreactive); HIV Num 1 0.05 S/CO (0.00-0.99); Hepatitis B Core Antibody Nonreactive (Nonreactive); Hepatitis B Surface Antigen Negative (Negative); ~HepC Num1 19.74 S/CO (0.00-0.79); ~Hepatitis B Surface Antibody REACTIVE (Nonreactive); ~Hepatitis C Antibody Reactive (Nonreactive)
--- NOTE | 2024-02-10 08:51 | MHC.CM.PN ---
PT REPORTS HE HAS BEEN STAYING WITH HIS FATHER HE IS CONNECTED TO NO COMMUNITY SERVICES PT WAS USING CRUTCHES BUT REPORTS HE HAS NO BEEN ABLE TO FOR THE LAST COUPLE OF DAYS DUE TO WORSENING CONDITION PT HAS NO PCP AND NO HCP DCP TBD PENDING PT EVAL AND/OR TREATMENT NEEDS HOME VS STR FOR IV ABX/PT TRANSPORT TBD
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
--- NOTE | 2024-02-10 10:55 | P.CDIM_ITS ---
PROVIDER RESPONSE TEXT: To clarify, the appropriate diagnosis supported by the clinical indicators: Underweight QUERY TEXT: PHYSICIAN'S DOCUMENTATION REQUEST Date of Query: 02/10/2024 10:20 AM EDT Patient Name: ABELINO Todd Admit Date: 02/09/2024 Dear Jamarcus Morse, A review of the medical record indicates additional documentation may be needed. Please review below and update the documentation accordingly. Clinical Indicators: Height: 6ft 1in Weight: 63.503kg BMI: 18.5 If possible, please provide an associated diagnosis related to the abnormal BMI, such as: Underweight Weight loss Anorexia Other (explain) Clinically unable to determine (explain) Thank you, Amanda Flowers, CCS, CDIS Use of terms such as suspected, likely, concern for, or probable (associated with a specific diagnosi s that is being evaluated, monitored, or treated as if it exists) are acceptable and can be coded in the inpatient se tting, when documented at the time of discharge. Please use your independent medical judgment in providing your response. THIS QUERY IS PART OF THE PERMANENT MEDICAL RECORD
--- NOTE | 2024-02-10 10:57 | HO.PM.IMPN ---
Subjective Subjective Date of Service: 02/10/24 Interval History: redness/swelling of R foot/leg improved no fever uncomfortable and anxious; wishes to start methadone Review of Systems Review of Systems: Yes all other systems are reviewed and are negative Physical Exam Vital Signs: Vital Signs: Last Vital Signs Temp 98.2 F 02/10/24 08:00 Pulse 81 02/10/24 08:00 Resp 18 02/10/24 08:00 BP 136/74 02/10/24 08:00 Pulse Ox 98 02/10/24 08:00 O2 Del Method Room Air 02/10/24 08:00 BMI result Body Mass Index 18.5 Gen: in no acute distress HEENT: sclera anicteric, moist mucus membranes Neck: supple Lungs: clear to auscultation bilaterally Heart: regular rate and rhythm, no murmurs Abd: soft, non-tender, non-distended Ext: no edema, RLE with minimal swelling now below the knee Skin: warm/well-perfused, redness of dorsum of R foot and hernández much improved from yesterday Neuro: alert and oriented x3, no focal findings Psych: appropriate affect Objective Data Active Medications Acetaminophen (Acetaminophen 325 Mg Tablet) 650 mg PO Q6H PRN PRN Reason: Pain, Mild (Pain Scale 1-3) Apixaban (Apixaban 5 Mg Tablet) 10 mg PO BID [facility] Stop: 02/16/24 09:01 Last Admin: 02/10/24 08:05 Dose: 10 mg Documented By: BRANDEN Piperacillin Sod/Tazobactam (Sod 3.375 gm/ Sodium Chloride) 50 mls @ 100 mls/hr IV Q6H [facility] Last Infusion: 02/10/24 08:38 Dose: Infused Documented By: BEBO Vancomycin HCl 1,250 mg/ (Sodium Chloride) 250 mls @ 166.667 mls/hr IV Q12H [facility] Last Infusion: 02/10/24 07:54 Dose: Infused Documented By: BRANDEN Ketorolac Tromethamine (Ketorolac Tromethamine 30 Mg/Ml Vial) 30 mg IVPUSH Q6H PRN PRN Reason: Pain, Moderate(Pain Scale 4-6) Last Admin: 02/10/24 06:17 Dose: 30 mg Documented By: KARLA Melatonin (Melatonin 3 Mg Tablet) 6 mg PO BEDTIME PRN PRN Reason: Insomnia Ondansetron HCl (Ondansetron Hcl 4 Mg/2 Ml Vial) 4 mg IVPUSH Q8H PRN PRN Reason: Nausea and Vomiting Pharmacy Consult (Consult Rx Vancomycin Dosing) 1 each MISCELLANE DAILY PRN PRN Reason: Consult order Sodium Chloride (0.9 % Sodium Chloride Flush 3 Ml Syringe) 3 ml IVFLUSH QSHIFT [facility] Last Admin: 02/10/24 08:07 Dose: Not Given Documented By: BRANDEN Non-Admin Reason: IV Running Labs 02/10/24 04:21 02/10/24 04:21 Labs: Laboratory Results - last 24 hr 02/10/24 04:21 MCV 80.6 MCH 27.1 MCHC 33.6 RDW 13.2 Plt Count 166 MPV 9.2 L Absolute Nucleated RBC 0.000 Nucleated RBC % (auto) 0.0 Anion Gap 9 L Estim Creat Clear Calc 115.6 Estimated GFR > 60 Random Glucose 103 Calcium 9.1 Total Bilirubin 0.4 AST 65 H ALT 48 H Alkaline Phosphatase 71 C-Reactive Protein 2.16 H Total Protein 6.6 Albumin 3.2 L Vitamin B12 414 Folate 11.2 Hep Bs Antigen Negative Hep Bs Antibody REACTIVE Hep B Core Total Ab Nonreactive Hepatitis C Ab (EIA) Reactive H HIV 1&2 Ab/P24 Ag 4thGn Nonreactive Microbiology Microbiology Results: Microbiology 02/09/24 01:50 Blood Culture - Preliminary Blood - Venous No growth after 24 hours. 02/09/24 01:50 Blood Culture - Preliminary Blood - Venous No growth after 24 hours. Assessment and Plan (1) DVT (deep venous thrombosis): Status: Acute (2) Opiate use: Status: Acute (3) Cellulitis of leg, right: Status: Acute Plan d2 38yo M with injection polysubstance abuse presenting with acute pain/swelling of RLE, found to have cellulitis and acute DVT acute DVT - likely due to venous injury from IDU; changed LMWH to apixaban RLE cellulitis - vanco + pip/dariusz 02/08-, follow BCx [negative thus far] ANNABELLA - will replete iron polysubstance abuse disorder - Addiction Med consulted, starting methadone HCV antibody positive - viral load pending; HBV immune and HIV negative VTE ppx - on apixaban dispo - eventual home In my clinical judgment, the patient requires continued inpatient hospitalization for the following reasons: IV ABX Total time managing care of this patient today: 35 minutes. Quality Stroke Does the patient have a stroke diagnosis?: No VTE Prior VTE?: No VTE Risk Level:: Medical - moderate - high VTE Device Contraindication: Treatment Not Indicated VTE Drug Contraindication: N/A - Med Ordered
[2024-02-10] MEDS: methADONE HCl 20 MG/2 ML ORAL.CONC 30 MG PO (10:59)
[2024-02-10 11:06] VITALS: BMI 21.5
--- NOTE | 2024-02-10 13:01 | MHC.CM.PN ---
per rounds pt dc plan pending pt eval home vs str
[2024-02-10 13:44] LABS: Vancomycin Trough 17.4 mcg/mL (10.0-20.0)
--- NOTE | 2024-02-10 14:09 | HE.PHANOTE ---
RE: VANCO DOSING Lab was drawn early (scheduled for 1500, drawn @1258) and came back as 17.4. Continue dose of 1250 mg q12h and schedule another random for 02/10 @1500.
[2024-02-10 15:18] VITALS: BP 119/59; PULSE 60; RESP 16; TEMP 36.8; O2SAT 100
[2024-02-10] MEDS: Ferrous Sulfate 324 MG TABLET.DR PO (15:28)
[2024-02-10 16:00] VITALS: PULSE 60
[2024-02-10] MEDS: methADONE HCl 20 MG/2 ML ORAL.CONC 10 MG PO (17:38)
--- NOTE | 2024-02-10 19:07 | MHC.RECOVSUP ---
? Reason for consult : Recovery Support o Current location: [facility] o Identified substance use concern: Heroin - Support ? Intervention: o Community resources provided o Harm reduction discussion ? Plan: o Patient to follow up with [facility] after discharge ? Additional information: Met with Patient and we talked about Recovery and what that looks like.. We talked about harm reduction, and resources.
[2024-02-10 19:24] VITALS: BP 130/73; PULSE 72; RESP 18; TEMP 37.1; O2SAT 99
[2024-02-10] MEDS: traZODone HCL 50 MG TABLET PO (20:01)
[2024-02-11] MEDS: Piperacillin Sodium/Tazobactam 3.375 GM in 0.9 % Sodium Chloride 50 ML IV ×2 (01:27→08:12)
[2024-02-11 03:14] VITALS: BP 116/59; PULSE 57; RESP 14; TEMP 37; O2SAT 97
[2024-02-11] MEDS: vancomycin HCL 1,250 MG in 0.9 % Sodium Chloride 250 ML 166.67 MG IV (05:01)
[2024-02-11 05:52] LABS: Creatinine Clr Calc Pharmacy 122.1; Estimated Glomerular Filt Rate > 60
[2024-02-11 08:00] VITALS: BP 111/57; PULSE 60; PULSE 90; TEMP 36.3; O2SAT 92
[2024-02-11] MEDS: Ferrous Sulfate 324 MG TABLET.DR PO (08:12)
[2024-02-11] MEDS: Apixaban 5 MG TABLET 10 MG PO (08:12)
[2024-02-11] MEDS: Ketorolac Tromethamine 30 MG/ML VIAL IVPUSH (08:12)
[2024-02-11] MEDS: 0.9 % Sodium Chloride Flush 3 ML SYRINGE IVFLUSH (08:13)
[2024-02-11] MEDS: methADONE HCl 20 MG/2 ML ORAL.CONC 50 MG PO (09:07)
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
--- NOTE | 2024-02-11 09:56 | MHC.CM.PN ---
pt dcd home self care
--- NOTE | 2024-02-11 11:09 | MHC.CM.PN ---
PT PROVIDED WITH SHUTTLE RIDE [facility]ANKE[facility]
--- NOTE | 2024-02-11 11:26 | P.PNADD_ITS ---
Subjective Subjective Date of Service: 02/11/24 Reason For Visit: leg infection Interim History: Patient seen in follow up Methadone 50mg this morning Plan for discharge shortly Reviewed with patient process [facility] Patient verbalized understanding Review of Systems Constitutional: Reports as per HPI and Reports no additional constitutional complaints Mental Status Exam Mental Status Exam Patient Appearance: Appropriate Level of Consciousness: Awake, Appropriate and Alert Diagnostics Vital Signs (24Hr): Vital Signs - 24 hr 02/10/24 15:18 02/10/24 19:24 02/11/24 03:14 Temperature 98.3 F 98.7 F 98.6 F Pulse Rate 60 72 57 Respiratory Rate 16 18 14 Blood Pressure 119/59 L 130/73 116/59 L Pulse Oximetry 100 99 97 Oxygen Delivery Method Room Air Room Air Room Air 02/11/24 08:00 Temperature 97.4 F Pulse Rate 90 Respiratory Rate Blood Pressure 111/57 L Pulse Oximetry 92 Oxygen Delivery Method Room Air BMI result Body Mass Index 21.5 Labs 02/10/24 04:21 02/11/24 05:24 Labs: Laboratory Results - last 48 hr 02/10/24 02/10/24 02/11/24 04:21 12:58 05:24 WBC 4.6 L RBC 3.77 L Hgb 10.2 L Hct 30.4 L MCV 80.6 MCH 27.1 MCHC 33.6 RDW 13.2 Plt Count 166 MPV 9.2 L Absolute Nucleated RBC 0.000 Nucleated RBC % (auto) 0.0 Hold Purple Top SEE NOTE Sodium 140 Potassium 4.1 D Chloride 110 H Carbon Dioxide 25 Anion Gap 9 L BUN 11 Creatinine 0.77 0.85 Estim Creat Clear Calc 115.6 122.1 Estimated GFR > 60 > 60 Random Glucose 103 Calcium 9.1 Total Bilirubin 0.4 AST 65 H ALT 48 H Alkaline Phosphatase 71 C-Reactive Protein 2.16 H Total Protein 6.6 Albumin 3.2 L Vitamin B12 414 Folate 11.2 Vancomycin Trough 17.4 Hep Bs Antigen Negative Hep Bs Antibody REACTIVE Hep B Core Total Ab Nonreactive Hepatitis C Ab (EIA) Reactive H HIV 1&2 Ab/P24 Ag 4thGn Nonreactive Imaging Radiology Impressions: ITS Impressions Ankle X-Ray 02/09/24 02:00 IMPRESSION: Prominent soft tissue swelling. No acute osseous findings. Venous Duplex 02/09/24 05:05 IMPRESSION: Deep venous thrombosis within the right popliteal vein and one of the peroneal veins in the calf. This critical result was discussed with Dr. He on 02/09/2024 5:36 AM, and it was ascertained that the content and urgency of the report was understood at the time of direct communication. 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
--- NOTE | 2024-02-11 13:00 | MHC.RECOVRN ---
Pts referral sent to Maureen HENRIQUEZ.
[2024-02-12 08:33] LABS: HCV Log PCR 6.06 Log IU/mL (NOT DETECTED); HepC Viral Load 1160000 IU/mL (NOT DETECTED)
--- NOTE | 2024-02-14 13:42 | P.CDIM_ITS ---
PROVIDER RESPONSE TEXT: To clarify, the appropriate diagnosis supported by the clinical indicators: Deep venous thrombosis (DVT) right popliteal vein and peroneal veins in calf QUERY TEXT: PHYSICIAN'S DOCUMENTATION REQUEST Date of Query: 02/11/2024 06:24 AM EDT Patient Name: ABELINO Todd Admit Date: 02/09/2024 Dear Jamarcus Morse, A review of the medical record indicates additional documentation may be needed. Please review below and update the documentation accordingly. Clinical Indicators: Swelling, erythema, pain in right leg with increased warmth in his right lower extremity x 3 days. Acute DVT Venous ultrasound: 02/09/24 Impression: Deep venous thrombosis right popliteal vein and peroneal veins in the calf. Initiating therapeutic Lovenox. Based on the above, could you clarify the appropriate specifics to the noted DVT: Deep venous thrombosis (DVT) right popliteal vein and peroneal veins in calf Other (explain) Clinically unable to determine (explain) Thank you, Amanda Flowers, CCS, CDIS Use of terms such as suspected, likely, concern for, or probable (associated with a specific diagnosi s that is being evaluated, monitored, or treated as if it exists) are acceptable and can be coded in the inpatient se tting, when documented at the time of discharge. Please use your independent medical judgment in providing your response. THIS QUERY IS PART OF THE PERMANENT MEDICAL RECORD
== END 2024-02-11 11:18 | disposition home or self-care (01) | DRG 197 ==
LOC: HO.ED 04:45 → HO.EDOVER 04:57 → HO.S3 02-10 07:30
PROVIDERS: Admitting Provider Student in an Organized Health Care Education/Training Program; Emergency Provider Emergency Medicine Emergency Medical Services; Visit Provider Family Medicine
DX: I82.431 Acute embolism and thrombosis of right popliteal vein (principal); L03.115 Cellulitis of right lower limb; F17.210 Nicotine dependence, cigarettes, uncomplicated; D50.9 Iron deficiency anemia, unspecified; B19.20 Unspecified viral hepatitis C without hepatic coma; F11.20 Opioid dependence, uncomplicated; F19.10 Other psychoactive substance abuse, uncomplicated; R63.6 Underweight; I82.451 Acute embolism and thrombosis of right peroneal vein; Z68.1 Body mass index [BMI] 19.9 or less, adult; Z71.6 Tobacco abuse counseling
CPT/HCPCS: 36415; 73610; 80048; 80053; 80202; 80307; 81003; 82565; 82607; 82728; 82746; 83540; 83605; 83615; 83690; 85025; 85027; 85045; 85652; 86140; 86704; 86706; 86803; 87040; 87340; 87389; 87522; 93971; 99221; 99285; J1650; J1885; J2543; J3371

== ENCOUNTER → 2024-02-09 04:28 | Outpatient (BNV) | payer OTHER, SELFPAY | PROVIDERS: Admitting Provider Student in an Organized Health Care Education/Training Program; Emergency Provider Emergency Medicine Emergency Medical Services; Visit Provider Nurse Practitioner Psychiatric/Mental Health | DX: F11.90 Opioid use, unspecified, uncomplicated (principal) | CPT/HCPCS: 99231; 99232 ==

== ENCOUNTER → 2024-02-09 04:28 | Outpatient (BNV) | payer OTHER, SELFPAY | PROVIDERS: Admitting Provider Student in an Organized Health Care Education/Training Program; Emergency Provider Emergency Medicine Emergency Medical Services; Visit Provider Student in an Organized Health Care Education/Training Program | DX: F11.99 Opioid use, unspecified with unspecified opioid-induced disorder (principal); I82.401 Acute embolism and thrombosis of unspecified deep veins of right lower extremity; L03.115 Cellulitis of right lower limb; D50.9 Iron deficiency anemia, unspecified; R76.8 Other specified abnormal immunological findings in serum | CPT/HCPCS: 99222; 99232; 99239; 99499 ==

== ENCOUNTER 2024-02-16 04:08 | Emergency (ER) | payer OTHER, SELFPAY ==
[2024-02-16 04:11] VITALS: BP 138/82; PULSE 96; O2SAT 99
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
--- NOTE | 2024-02-16 04:21 | PC.NURSE ---
Pt ELIZABETH from [facility] for ? R leg pain. on arrival, pt refused to receive care, denied any complaints and requested to leave without being seen. This RN encouraged pt to stay for MD, pt refused.
== END 2024-02-16 04:23 | disposition left against medical advice (07) ==
PROVIDERS: Emergency Provider Emergency Medicine
DX: M79.604 Pain in right leg (principal)

== ENCOUNTER 2024-09-05 12:23 | Emergency (ER) | payer OTHER, SELFPAY ==
--- NOTE | ~2024-09-05 | XR_ITS ---
CLINICAL HISTORY: swelling, red, pain 3 view left hand Comparison: None Findings: No fractures or dislocations. There is well corticated irregularity in the distal tip of the 5th distal phalanx likely sequelae of remote trauma or infection. No significant loss of joint space or osteophytes. There is dorsal soft tissue swelling about the metacarpals. There is 5th digit soft tissue swelling. There are no erosive or resorptive bony changes to suggest acute osteomyelitis. No radiopaque foreign body. IMPRESSION: 1. No acute fracture or dislocation. 2. No radiographic evidence for acute osteomyelitis. This document has been electronically signed by: Sarah Major DO on 09/05/2024 13:53:08
[2024-09-05 12:31] VITALS: BP 133/82; PULSE 103; RESP 16; TEMP 36.7; O2SAT 99; BMI 21.1
--- NOTE | 2024-09-05 12:32 | ED_ITS ---
HPI - Extremity Injury (Upper) General Chief Complaint: Skin/Abscess/Foreign Body Stated Complaint: L Hand Swelling ? Infection Time Seen by Provider: 09/05/24 13:59 Source: patient Mode of arrival: ambulatory Limitations: no limitations History of Present Illness ED Provider: Kelly Summers APRN HPI narrative: 38 yo male with history of IVDA here with complaints of left hand swelling, redness and pain x 2 days. Patient denies any known injury or trauma. He is right-handed at baseline. He denies using IV drugs in the left hand. Fevers, chills, body aches. Patient reports he is intermittently using IV drugs. He is not interested at this time in Suboxone or methadone Related Data Previous Rx's ?Medication ?Instructions ?Recorded amoxicillin 875 mg-potassium 1 tab PO BID #10 tabs 02/11/24 clavulanate 125 mg tablet apixaban 5 mg tablet (Eliquis) See Rx Instructions .Route 02/11/24 .COMPLEX #74 tabs doxycycline monohydrate 100 mg 100 mg PO BID #10 tabs 02/11/24 tablet ferrous sulfate 324 mg (65 mg 324 mg PO DAILY #30 tabs 02/11/24 iron) tablet,delayed release methadone 10 mg/mL oral 50 mg (5 mL) PO DAILY #1 mL 02/11/24 concentrate (Methadose) doxycycline monohydrate 100 mg 100 mg PO BID #20 tabs 09/05/24 tablet Allergies Allergy/AdvReac Type Severity Reaction Status Date / Time No Known Allergies Allergy Verified 09/05/24 12:36 [No Known Allergies*] Review of Systems 2 Review of Systems: Yes all other systems are reviewed and are negative Constitutional: Constitutional: Reports no additional constitutional complaints, Denies body ache(s), Denies chills, Denies fever(s), Denies headache(s) and Denies weakness Eyes: Eyes: Reports no additional eye complaints and Denies change in vision ENT: Reports system reviewed and no additional complaints, except as documented, Denies dizziness, Denies headache(s), Denies nasal congestion, Denies nasal discharge and Denies neck pain Cardiovascular: Cardiovascular: Reports no additional cardiovascular complaints, Denies chest pain, Denies leg edema and Denies dyspnea Respiratory: Respiratory: Reports no additional respiratory complaints, Denies cough and Denies dyspnea Gastrointestinal: Gastrointestinal: Reports no additional gastrointestinal complaints, Denies abdominal pain, Denies diarrhea, Denies nausea and Denies vomiting Genitourinary: Genitourinary: Denies urinary incontinence Musculoskeletal: Musculoskeletal: Reports no additional musculoskeletal complaints, Denies back pain, Denies arthralgias, Denies joint swelling, Denies neck pain, Denies numbness and Denies tingling Integumentary/Breasts: Skin/Breast: Reports system reviewed and no additional complaints, except as docu, Reports swelling, Reports erythema and Denies rash Neurologic: Reports system reviewed and no additional complaints, except as documented, Denies Abnormal speech present, Denies dizziness, Denies headache(s), Denies numbness, Denies tingling and Denies weakness PMFSH Past Medical History Attestation statement: The following information was validated with the patient. Source: old records reviewed and nursing notes reviewed Medical History Opioid use disorder No known health problems Social History Social History Household Members: Family Housing: House Alcohol intake: never Patient Tobacco Use Status: Current everyday Tobacco user Tobacco use type: Cigarette Cigarettes Per Day: 10 Substance Use Type: Heroin Advance Directives: No Advance Directives Information Provided: No Do you have a plan to hurt others: No Plan service: No Physical Exam 2 Vital Signs: Vital Signs: Last Vital Signs Temp 98.0 F 09/05/24 12:31 Pulse 103 H 09/05/24 12:31 Resp 16 09/05/24 12:31 BP 133/82 09/05/24 12:31 Pulse Ox 99 09/05/24 12:31 O2 Del Method Room Air 09/05/24 12:31 BMI result Body Mass Index 21.1 Const: General: cooperative, healthy appearing, comfortable and no acute distress Orientation/consciousness: patient oriented x3 Limitations: no limitations HEENT: Head: Yes normal to inspection Ears: hearing grossly normal bilaterally General nose exam: Normal external nose present Face and sinus: Yes normal facial exam Mouth: Normal oral and palatal mucosa present Throat: Yes posterior oropharynx normal Eyes: General: appearance normal, both eyes and all related structures P upils: Equal, round and reactive pupils present Neck: Neck: Yes normal visual inspection Chest: Chest palpation & inspection: normal inspection of the chest Resp: Effort & Inspection: normal respiratory effort Auscultation: clear to auscultation bilaterally Cardio: Rate: regular rate Rhythm: regular rhythm Peripheral pulses: P eripheral pulses 2+ throughout GI: Inspection: Yes normal to inspection Palpation (GI): Soft to palpation and nontender Auscultation: normal bowel sounds Back/Spine/Pelvis: Thoracic/Lumbar Spine: thoracic and lumbar spine normal to inspection Skin: General skin exam: no rashes or lesions noted Neuro: General: patient oriented x3, no focal motor deficits and normal sensation to monofilament Cranial nerves: Yes Equal, round and reactive pupils present Cognition (Neuro): normal cognition Speech: No Abnormal speech present Gait exam (Neuro): Normal gait present Motor exam (neuro): 5/5 motor strength present throughout Extrem: Other: Able to flex and extend the digits with no difficulty. Full active and passive range of motion of the left wrist. The redness and swelling is not circumferential. I do not palpate any obvious abscess. General: Yes normal to inspection Course Course Course Narrative: This is a Rapid Medical Exam performed in triage by Aixa Lo PA-C. Full HPI, ROS and PE to be performed by primary ED provider. 38yo with past medical history DVT, IVDA, Hep C, presenting to the ED c/o Left hand pain, swelling, erythema worsening x3 days. denies injecting into area, but has injected into LUE. Denies known injury or fall/fever PE: Left hand with appreciable swelling, erythema, in the warmth. Pain with ROM. Plan: Labs including lactic/blood culture, x-ray Reevaluation(s) Reevaluation #1: Labs show chronically elevated inflammatory markers. Negative for leukocytosis. Negative lactic acid. X-ray shows no evidence of acute osteomyelitis. Patient will be discharged home with oral antibiotic with strict return precautions. Reviewed worrisome signs and symptoms of when to return to the emergency room. Comfortable plan for discharge home Medical Decision Making Medical Decision Making MDM Narrative: This is a 38-year-old male who is right-hand dominant who presents the ER with complaints of left hand swelling, redness and pain for 2 days. On exam there does appear to be a cellulitis which is not circumferential. Patient has good range of motion of the joints. There are several abrasions noted over the 2nd and 5th digits and this may be the source of entry for the cellulitis. Patient also uses IV drugs but does deny IV drug use in the site. Will need labs, x-ray Differential Diagnosis Differential Diagnoses: The differential diagnosis associated with the presentation includes Cellulitis Low suspicion for foreign body, osteomyelitis, septic joint, tenosynovitis Admission/Observation Consideration of admission/observation: Escalation of care including admission/observation considered Patient has mild cellulitis on exam. Not meeting sepsis criteria. Can be discharged home with oral antibiotics and strict return precautions Lab Data MDM Lab Attestation statement: I reviewed the patient's lab results. 09/05/24 13:09 09/05/24 13:09 Labs: Lab Results 09/05/24 09/05/24 Range/Units 13:08 13:09 WBC 7.1 (4.8-10.8) X10*3/uL RBC 4.73 D (4.60-5.80) X10*6/uL Hgb 11.9 L (14.0-18.0) g/dl Hct 37.2 L D (42.0-52.0) % MCV 78.6 L (80.0-98.0) fL MCH 25.2 L (27.0-33.0) pg MCHC 32.0 (31.0-36.0) g/dl RDW 13.0 (11.0-16.0) % Plt Count 216 D (160-400) X10*3/uL MPV 9.0 L (9.4-12.4) fL Immature Gran % (Auto) 0.3 (0.0-0.4) % Neut % (Auto) 58.5 (45-73) % Lymph % (Auto) 32.6 (20-40) % [place] % (Auto) 7.3 (2-11) % Eos % (Auto) 1.0 (0-4) % Baso % (Auto) 0.3 (0-2) % Lymph # (Auto) 2.3 (1.2-4.9) X10*3/uL [place] # (Auto) 0.5 (0.1-1.2) X10*3/uL Eos # (Auto) 0.1 (0.0-0.4) X10*3/uL Baso # (Auto) 0.0 (0.0-0.2) X10*3/uL Abs Immat Gran (auto) 0.02 (0.00-0.03) X10*3/uL Absolute Neuts (auto) 4.2 (2.0-8.3) x10*3/uL Absolute Nucleated RBC 0.000 (0.0-0.012) X10*3/uL Nucleated RBC % (auto) 0.0 (0.0-0.2) /100WBC ESR 34 H (0-15) MM/HR PT 13.0 H (10.9-12.4) SEC INR 1.1 (0.9-1.1) Sodium 140 (135-145) mmol/L Potassium 4.4 (3.3-5.1) mmol/L Chloride 105 (96-108) mmol/L Carbon Dioxide 26 (22-29) mmol/L Anion Gap 13 (12-20) BUN 8 L (9-16) mg/dL Creatinine 0.76 (0.5-1.4) mg/dL Estim Creat Clear Calc 133.9 Estimated GFR > 60 Random Glucose 99 (60-115) mg/dL Lactic Acid 1.2 (0.5-2.0) mmol/L Calcium 9.5 (8.4-10.2) mg/dL Total Bilirubin 0.6 (0.0-1.0) mg/dL Direct Bilirubin 0.3 (0.0-0.5) mg/dL AST 71 H (5-37) U/L ALT 76 H (0-40) U/L Alkaline Phosphatase 105 (39-117) U/L C-Reactive Protein 7.10 H (< or = 0.50) mg/dL Total Protein 8.7 H (6.5-8.0) g/dL Albumin 4.0 (3.5-5.0) g/dL Independent Interpretation I performed an independent interpretation of an: Plain X-Ray Interpretation: I independently viewed the x-ray and agree with the radiology report Radiology Impression Discussion of test interpretation with radiology: I have reviewed the radiologist's reading. Radiologist Impression: [address] [address] XRay Report Signed Patient: Norbert Todd MR#: [id number] : 1985 Acct:[id number] Age/Sex: 38 / M ADM Date: 09/05/24 Loc: HO.ED Attending Dr: Ordering Physician: Aixa Lo Date of Service: 09/05/24 Procedure(s): XR hand LT min 3V Accession Number(s): [id number] cc: Samm Barger MD; Aixa Lo~ CLINICAL HISTORY: swelling, red, pain 3 view left hand Comparison: None Findings: No fractures or dislocations. There is well corticated irregularity in the distal tip of the 5th distal phalanx likely sequelae of remote trauma or infection. No significant loss of joint space or osteophytes. There is dorsal soft tissue swelling about the metacarpals. There is 5th digit soft tissue swelling. There are no erosive or resorptive bony changes to suggest acute osteomyelitis. No radiopaque foreign body. IMPRESSION: 1. No acute fracture or dislocation. 2. No radiographic evidence for acute osteomyelitis. This document has been electronically signed by: Sarah Major DO on 09/05/2024 13:53:08 Discharge Plan Discharge Clinical Impression: Cellulitis Patient Disposition: Home, Self-Care Instructions: Cellulitis (ED) Additional Instructions: Return to the emergency room for increasing swelling, increasing redness, fever or difficulty with range of motion of the hand or finger Follow-up outpatient with [place] [facility] as discussed Prescriptions: New doxycycline monohydrate 100 mg tablet 100 mg PO BID Qty: 20 0RF No Action Eliquis 5 mg Tablet See Rx Instructions .ROUTE .COMPLEX Qty: 74 0RF Rx Instructions: 2 tabs twice daily for 7 days, then 1 tab twice daily; continue for 3 months total methadone [Methadose] 10 mg/mL Concentrate 50 mg PO DAILY Qty: 1 0RF Rx Instructions: Partial Fill upon patient request. ferrous sulfate 324 mg (65 mg iron) Tablet,Delayed Release (Dr/Ec) 324 mg PO DAILY Qty: 30 0RF doxycycline monohydrate 100 mg tablet 100 mg PO BID Qty: 10 0RF amoxicillin-pot clavulanate 875-125 mg tablet 1 tab PO BID Qty: 10 0RF Referrals: Samm Barger MD [Primary Care Provider] - 10 days Print Language: Montenegrin
[2024-09-05 13:17] LABS: MANUAL DIFF FLAG NO
[2024-09-05 13:19] LABS: Basophils Percent Auto 0.3 % (0-2); Eosinophils Absolute Auto 0.1 X10*3/uL (0.0-0.4); Hematocrit 37.2 % (42.0-52.0); Hemoglobin 11.9 g/dl (14.0-18.0); Imm Gran Abs Auto 0.02 X10*3/uL (0.00-0.03); Imm Gran Pct Auto 0.3 % (0.0-0.4); Lymphocytes Absolute Auto 2.3 X10*3/uL (1.2-4.9); Lymphocytes Percent Auto 32.6 % (20-40); Mean Corpuscular Hemoglobin 25.2 pg (27.0-33.0); Mean Corpuscular Volume 78.6 fL (80.0-98.0); Monocytes Absolute Auto 0.5 X10*3/uL (0.1-1.2); Monocytes Percent Auto 7.3 % (2-11); Neutrophils Absolute Auto 4.2 x10*3/uL (2.0-8.3); Neutrophils Percent Auto 58.5 % (45-73); Platelet Count 216 X10*3/uL (160-400); Red Blood Count 4.73 X10*6/uL (4.60-5.80); White Blood Count 7.1 X10*3/uL (4.8-10.8)
[2024-09-05 13:28] LABS: INTERNATIONAL NORM RATIO 1.1 (0.9-1.1)
[2024-09-05 13:33] LABS: Lactic Acid 1.2 mmol/L (0.5-2.0)
[2024-09-05 13:34] LABS: Alanine Aminotransferase 76 U/L (0-40); Alkaline Phosphatase 105 U/L (39-117); Anion Gap 13 (12-20); Aspartate Amino Transferase 71 U/L (5-37); Bilirubin Direct 0.3 mg/dL (0.0-0.5); Bilirubin Total 0.6 mg/dL (0.0-1.0); Blood Urea Nitrogen 8 mg/dL (9-16); Calcium 9.5 mg/dL (8.4-10.2); Carbon Dioxide 26 mmol/L (22-29); Chloride 105 mmol/L (96-108); Creatinine Clr Calc Pharmacy 133.9; Estimated Glomerular Filt Rate > 60; Glucose Random 99 mg/dL (60-115); Potassium 4.4 mmol/L (3.3-5.1); Sodium 140 mmol/L (135-145); Total Protein 8.7 g/dL (6.5-8.0)
[2024-09-05 14:04] LABS: Erythrocyte Sedimentation Rate 34 MM/HR (0-15)
[2024-09-05 14:49] VITALS: BP 133/82; PULSE 103; RESP 16; TEMP 36.7; O2SAT 99
== END 2024-09-05 14:50 | disposition home or self-care (01) ==
PROVIDERS: Physician Assistant; Emergency Provider Emergency Medicine; PCP Internal Medicine
DX: L03.114 Cellulitis of left upper limb (principal); M79.642 Pain in left hand; D50.9 Iron deficiency anemia, unspecified; F19.10 Other psychoactive substance abuse, uncomplicated; F17.210 Nicotine dependence, cigarettes, uncomplicated; Z86.718 Personal history of other venous thrombosis and embolism; Z79.899 Other long term (current) drug therapy
CPT/HCPCS: 36415; 73130; 80048; 80076; 83605; 85025; 85610; 85652; 86140; 87040; 99283; 99284

== ENCOUNTER → 2024-09-05 12:34 | Outpatient (BNV) | payer OTHER, SELFPAY | PROVIDERS: PCP Internal Medicine; Visit Provider Radiology Diagnostic Radiology | DX: R22.32 Localized swelling, mass and lump, left upper limb (principal) | CPT/HCPCS: 73130 ==

== ENCOUNTER 2025-08-20 15:37 | Emergency (ER) | payer MEDICAID, SELFPAY ==
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
[2025-08-20 15:45] VITALS: BP 107/70; PULSE 126; RESP 20; TEMP 36.8; O2SAT 95; BMI 21.3
--- OUTSIDE RECORDS SUMMARY | 2025-08-20 17:52 | XMS_ITS | Patient Health Record ---
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
== END 2025-08-20 19:20 | disposition left against medical advice (07) ==
PROVIDERS: Emergency Provider Emergency Medicine; PCP Internal Medicine
DX: R60.0 Localized edema (principal)
CPT/HCPCS: 99281